=== PATIENT | female | born 1950 | race Two or more races ===

== ENCOUNTER 2017-08-01 10:59 | Outpatient (CLI) | payer OTHER ==
[~2017-08-01] VITALS: Ht 152.4 cm; Wt 47.6 kg
[~2017-08-01 10:59] MED LIST: NABUMETONE500 MG PO; PERCOCET 5/3251 TAB PO; PROZAC20 MG PO; TOPROL XL25 M1 PO; TRILIPIX135 MG PO; ZOCOR40 MG PO
== END 2017-08-01 11:15 | disposition home or self-care (01) ==
LOC: OFIC 805 10:59
DX: E04.1 Nontoxic single thyroid nodule (principal); H90.3 Sensorineural hearing loss, bilateral; H61.23 Impacted cerumen, bilateral

== ENCOUNTER 2017-09-13 11:17 | Outpatient (CLI) | payer OTHER ==
[~2017-09-13] VITALS: Ht 152.4 cm; Wt 47.6 kg
== END 2017-09-13 11:30 | disposition home or self-care (01) ==
LOC: OFIC 805 11:17
DX: H90.3 Sensorineural hearing loss, bilateral (principal); S00.5 Superficial injury of lip and oral cavity; X58.XXXS Exposure to other specified factors, sequela

== ENCOUNTER 2017-09-21 07:40 | Outpatient (CLI) | payer OTHER | END 2017-09-21 08:47 | disposition home or self-care (01) | LOC: LAB 07:40 | DX: E83.42 Hypomagnesemia (principal); E55.9 Vitamin D deficiency, unspecified; D64.89 Other specified anemias; E88.89 Other specified metabolic disorders; D68.8 Other specified coagulation defects; N39.0 Urinary tract infection, site not specified; B95.62 Methicillin resistant Staphylococcus aureus infection as the cause of diseases classified elsewhere ==

== ENCOUNTER 2017-09-21 07:58 | Outpatient (CLI) | payer OTHER | END 2017-09-21 08:47 | disposition home or self-care (01) | LOC: EKG 07:58 | DX: I49.8 Other specified cardiac arrhythmias (principal) ==

== ENCOUNTER 2017-09-21 08:03 | Outpatient (CLI) | payer OTHER | END 2017-09-21 08:47 | disposition home or self-care (01) | LOC: RAD 08:03 | DX: Z76.89 Persons encountering health services in other specified circumstances (principal); M25.561 Pain in right knee; M25.562 Pain in left knee; M79.652 Pain in left thigh; M79.605 Pain in left leg ==

== ENCOUNTER 2017-10-07 11:15 | Inpatient (IN) | payer OTHER ==
[~2017-10-07] VITALS: Ht 152.4 cm; Wt 49.0 kg
[2017-10-07] MEDS ORDERED: WELLBUTRIN SR150 MG PO (13:08)
[2017-10-07] MEDS ORDERED: LIPITOR40 MG PO (13:09)
[2017-10-07] MEDS ORDERED: CALCIUM500 M1 PO (13:10)
[2017-10-07] MEDS ORDERED: VIT D (13:11)
[2017-10-07] MEDS ORDERED: MAGNESIUM500 MG PO (13:12)
[2017-10-14] MEDS ORDERED: XARELTO10 MG PO (09:44)
== END 2017-10-14 13:03 | disposition home or self-care (01) | DRG 470 ==
LOC: O/R 10-11 06:52 → SURG 10-11 06:52
PROVIDERS: Orthopaedic Surgery
PROC: 0SRD0J9 Replacement of Left Knee Joint with Synthetic Substitute, Cemented, Open Approach (ICD-10-PCS; principal; 2017-10-11 07:00)
DX: M17.12 Unilateral primary osteoarthritis, left knee (principal)

== ENCOUNTER 2018-01-05 07:08 | Outpatient (CLI) | payer OTHER ==
[~2018-01-05 07:08] MED LIST changes: +CALCIUM500 M1 PO; +LIPITOR40 MG PO; +MAGNESIUM500 MG PO; +VIT D; +WELLBUTRIN SR150 MG PO; +XARELTO10 MG PO
== END 2018-01-05 07:10 | disposition home or self-care (01) ==
LOC: LAB 07:08
DX: E55.9 Vitamin D deficiency, unspecified (principal); M85.9 Disorder of bone density and structure, unspecified; E21.2 Other hyperparathyroidism; M81.8 Other osteoporosis without current pathological fracture; E56.1 Deficiency of vitamin K; E88.89 Other specified metabolic disorders; E83.42 Hypomagnesemia

== ENCOUNTER 2018-01-24 13:33 | Outpatient (CLI) | payer OTHER ==
[~2018-01-24] VITALS: Ht 152.4 cm; Wt 47.6 kg
== END 2018-01-24 17:20 | disposition home or self-care (01) ==
LOC: OFIC 805 13:33
DX: E04.1 Nontoxic single thyroid nodule (principal); R22.1 Localized swelling, mass and lump, neck

== ENCOUNTER 2018-02-07 08:16 | Outpatient (CLI) | payer OTHER | END 2018-02-07 08:24 | disposition home or self-care (01) | LOC: SONOGRAMA 08:16 | DX: E04.2 Nontoxic multinodular goiter (principal) ==

== ENCOUNTER 2018-02-28 14:29 | Outpatient (CLI) | payer OTHER | END 2018-02-28 14:45 | disposition home or self-care (01) | LOC: OFIC 805 14:29 | DX: R22.1 Localized swelling, mass and lump, neck (principal); E04.1 Nontoxic single thyroid nodule ==

== ENCOUNTER 2018-10-23 10:05 | Outpatient (CLI) | payer OTHER | END 2018-10-23 10:10 | disposition home or self-care (01) | LOC: RAD 10:05 | DX: M17.12 Unilateral primary osteoarthritis, left knee (principal); E03.8 Other specified hypothyroidism; M23.52 Chronic instability of knee, left knee; M23.92 Unspecified internal derangement of left knee; I10 Essential (primary) hypertension; I11.9 Hypertensive heart disease without heart failure; E46 Unspecified protein-calorie malnutrition; E88.81 Metabolic syndrome and other insulin resistance; F06.31 Mood disorder due to known physiological condition with depressive features; F39 Unspecified mood [affective] disorder ==

== ENCOUNTER → 2020-12-05 06:16 | Outpatient (CLI) | payer OTHER | END | disposition home or self-care (01) | LOC: LAB 06:16 | PROVIDERS: ATTEND Internal Medicine Hematology & Oncology | DX: R79.9 Abnormal finding of blood chemistry, unspecified (principal); I10 Essential (primary) hypertension; R74.02 Elevation of levels of lactic acid dehydrogenase [LDH]; K76.89 Other specified diseases of liver; D50.8 Other iron deficiency anemias; D51.8 Other vitamin B12 deficiency anemias; D51.1 Vitamin B12 deficiency anemia due to selective vitamin B12 malabsorption with proteinuria; D51.0 Vitamin B12 deficiency anemia due to intrinsic factor deficiency; E03.8 Other specified hypothyroidism; E06.3 Autoimmune thyroiditis ==

== ENCOUNTER 2020-12-16 14:21 | Outpatient (CLI) | payer OTHER | END 2020-12-16 14:41 | disposition home or self-care (01) | LOC: MAMO-SONO 14:21 | PROVIDERS: ATTEND Internal Medicine Hematology & Oncology | DX: E04.2 Nontoxic multinodular goiter (principal); Z12.31 Encounter for screening mammogram for malignant neoplasm of breast; N64.4 Mastodynia ==